=== PATIENT | male | born 1955 | race Caucasian/White ===

== ENCOUNTER 2016-11-11 06:08 | Day surgery (SDC) | payer BC ==
[~2016-11-11 06:08] MED LIST: *DENIES; NO HOME MEDS
== END 2016-11-11 11:23 | disposition home or self-care (01) ==
LOC: SDC 06:08
PROVIDERS: Orthopaedic Surgery
PROC: 3E0R3BZ Introduction of Anesthetic Agent into Spinal Canal, Percutaneous Approach (ICD-10-PCS; 2016-11-11)
PROC: B01BYZZ Fluoroscopy of Spinal Cord using Other Contrast (ICD-10-PCS; 2016-11-11)
PROC: 3E0R33Z Introduction of Anti-inflammatory into Spinal Canal, Percutaneous Approach (ICD-10-PCS; principal; 2016-11-11 08:15)
DX: M54.16 Radiculopathy, lumbar region (principal); Z98.890 Other specified postprocedural states
CPT/HCPCS: 77003; J1040; J2250; J3010; Q9967

== ENCOUNTER 2016-11-24 04:16 | Day surgery (SDC) | payer BC | END 2016-11-24 08:20 | disposition home or self-care (01) | LOC: SDC 04:16 | PROVIDERS: Orthopaedic Surgery | PROC: 3E0S3BZ Introduction of Anesthetic Agent into Epidural Space, Percutaneous Approach (ICD-10-PCS; 2016-11-24) | PROC: 3E0S33Z Introduction of Anti-inflammatory into Epidural Space, Percutaneous Approach (ICD-10-PCS; principal; 2016-11-24 07:45) | DX: M54.16 Radiculopathy, lumbar region (principal); M54.5 Low back pain; Z98.1 Arthrodesis status; F17.210 Nicotine dependence, cigarettes, uncomplicated; M19.90 Unspecified osteoarthritis, unspecified site; K64.9 Unspecified hemorrhoids; Z98.890 Other specified postprocedural states; Z85.828 Personal history of other malignant neoplasm of skin | CPT/HCPCS: J1040; J2250; J3010; Q9967 ==